=== PATIENT | male | born 1975 | race Caucasian/White ===

== ENCOUNTER 2023-06-15 16:32 | Outpatient (CLI) | payer BC, SELFPAY | END 2023-06-15 16:33 | disposition home or self-care (01) | PROVIDERS: PCP Family Medicine; Visit Provider Internal Medicine | DX: R10.2 Pelvic and perineal pain (principal); Z13.6 Encounter for screening for cardiovascular disorders; Z12.5 Encounter for screening for malignant neoplasm of prostate; Z13.9 Encounter for screening, unspecified | CPT/HCPCS: 80053; 80061; 84153; 86900; 86901 ==

== ENCOUNTER 2023-08-26 17:53 | Outpatient (CLI) | payer BC, SELFPAY ==
--- NOTE | 2023-08-26 18:00 | CRLHL7_ITS ---
For Patients: As a result of the Century Cures Act, medical imaging exams and procedure reports are released immediately into your electronic medical record. You may view this report before your referring provider. If you have questions, please contact your health care provider. INDICATION: Trauma, pain, edema TECHNIQUE: Ultrasound venous duplex upper left extremity. Compression venous exam was performed using brambila-scale, color Doppler, and spectral Doppler imaging. COMPARISON: None. FINDINGS: The left internal jugular, subclavian, and axillary veins are patent with normal waveforms. The brachial, basilic, and cephalic veins are fully compressible. Visualized left radial and ulnar veins appear compressible. IMPRESSION: No evidence of acute deep venous thrombosis in the left upper extremity. Dictated by Suze Saldana MD @ 08/26/2023 7:55:00 PM (Electronically Signed)
== END 2023-08-26 17:54 | disposition home or self-care (01) ==
LOC: US 17:54
PROVIDERS: PCP Internal Medicine; Visit Provider Internal Medicine
DX: T14.90XA Injury, unspecified, initial encounter (principal)
CPT/HCPCS: 93971

== ENCOUNTER 2023-10-29 08:24 | Outpatient (CLI) | payer BC, SELFPAY ==
--- OUTSIDE RECORDS SUMMARY | 2023-10-29 08:27 | XMS_ITS | Patient Health Record ---
Author Name Unknown Organization [facility] Address [address] [place] [address] Care Team Providers Care Instrument Installer Name Role Phone Sterling Loredo Primary Care Provider ALLERGIES Allergen (clinical drug ingredient) Drug/Non Drug Allergy documented on EMR Reaction Allergy Type Onset Date Status Shellfish (FN) Shellfish (uncoded) Unknown Allergy Active REASON FOR REFERRAL No Information MEDICATIONS Medication SIG (Take, Route, Frequency, Duration) Notes Start Date End Date Status Vitamin E Active Vitamin D Active SOTTOPELLE Active HERBAL SUPPLEMENT takes supplements. Not sure what they are Active SOCIAL HISTORY Tobacco Use: Social History Observation Description Date Details (start date - stop date) Never Smoker NA - NA Sex Assigned At : Social History Observation Description Sex Assigned At Unknown Tobacco Use/Smoking Question Answer Notes Are you a nonsmoker PROBLEMS Problem Type ICD Code Onset Dates Problem Status W/U Status Risk SNOMED Code Notes Problem Testicular dysfunction (E29.9) Active confirmed Testicular dysfunction (15077972) PLAN OF TREATMENT No Information Insurance Providers Payer Name Payer Address Payer Phone Subscriber Number Group Number Insured Name Patient Relationship to Insured Coverage Start Date Coverage End Date BCBS [address] [place] [address] [id number] Deric Chaudhari Self - patient is the insured MEDICAL (GENERAL) HISTORY Medical History History ICD Code None Surgical History Surgery Date(Month/Year) wisdom teeth removal
--- NOTE | 2023-10-29 09:55 | W.ANESCHARGE ---
Anesthesia Charges Start Date/Time Anesthesia Start Date: 10/29/23 Anesthesia Start Time: 09:25 Stop Date/Time Anesthesia Stop Date: 10/29/23 Anesthesia Stop Time: 09:53
--- NOTE | 2023-10-29 10:17 | W.ANESCHARGE ---
Anesthesia Charges Start Date/Time Anesthesia Start Date: 10/29/23 Anesthesia Start Time: 09:25 Stop Date/Time Anesthesia Stop Date: 10/29/23 Anesthesia Stop Time: 09:53
== END 2023-10-29 08:25 | disposition home or self-care (01) ==
LOC: OP CLINIC 08:25
PROVIDERS: PCP Internal Medicine; Visit Provider Internal Medicine
DX: Z12.11 Encounter for screening for malignant neoplasm of colon (principal); D12.4 Benign neoplasm of descending colon
CPT/HCPCS: 00811; 00812; 45380; 88305; J2704

== ENCOUNTER 2024-09-19 01:39 | Emergency (ER) | payer BC, SELFPAY ==
[2024-09-19 01:45] VITALS: BP 142/84; PULSE 89; RESP 20; TEMP 36.7; O2SAT 99; BMI 32.3
--- NOTE | 2024-09-19 02:01 | ED_ITS ---
HPI - General Adult General Date Seen: 09/19/24 Chief complaint: Skin/Abscess/Foreign Body Stated complaint: allergic reaction/rash Time Seen by Provider: 09/19/24 01:43 Source: patient Mode of arrival: ambulatory Limitations: no limitations History of Present Illness HPI narrative: Patient is a very nice 49-year-old gentleman who presents here with a rash over his whole body, it is worse on his torso but also apparent on his arms and legs, sparing his face and head. Says very itchy, he did take some Benadryl and some Zyrtec this morning and this did help, but then came back again tonight. No history of lip swelling, shortness of breath, tongue swelling or other issues. Reports no new medications, no recent URI type illnesses that he had some new type of cookies, and is wondering if this is from that. Related Data Previous Rx's ?Medication ?Instructions ?Recorded prednisone 20 mg tablet 20 mg PO Q12H #10 tabs 09/19/24 Allergies Allergy/AdvReac Type Severity Reaction Status Date / Time shellfish derived Allergy Mild Anaphylaxis Verified 09/19/24 01:48 Review of Systems Status of ROS: Reports: 10 or more systems reviewed and unremarkable except as noted in History and below [facility] Medical History Hematoma ?T14.8XXA - Other injury of unspecified body region, initial encounter (ICD- 10) Injury ?T14.90XA - Injury, unspecified, initial encounter (ICD-10) Perineal pain ?R10.2 - Pelvic and perineal pain (ICD-10) Screening due ?Z13.9 - Encounter for screening, unspecified (ICD-10) Exam Narrative: Exam Narrative: Patient is seen in room 4 he is in no apparent distress, speaking to me normally, good phonation, pupils equal round reactive to light TMs normal oropharynx normal neck is supple there is no oropharyngeal swelling noted. His chest is good air entry bilaterally no wheezing crackles noted heart sounds are normal abdomen is soft, he has classic urticarial wheals, most on his torso, but also on his extremities sparing his palms face and head. Const: Vital Signs, click to edit/add: Vital Signs - 24 hr 09/19/24 01:45 Temperature 98.0 F Pulse Rate [Right Pulse Oximeter] 89 Respiratory Rate 20 Blood Pressure [Ri ght Upper Arm] 142/84 H Pulse Oximetry 99 Oxygen Delivery Me thod Room Air Documenting provider has reviewed patient's vital signs: yes Course Course ED Course: I discussed with the patient, we will give him some prednisone, I discussed with him that we sometimes known figure out what causes this, he can avoid the cookies although I doubt whether this is the cause more likely it is going to come back as we do not understand this and he will just improve with time. He can continue with antihistamines both the Benadryl the Zyrtec, we will as prednisone, he risks the chance of rebound with this, but I think it is worth as he is miserable with itching Vital Signs Vital signs: Initial Vital Signs Temperature 98.0 F 09/19/24 01:45 Temperature Source Temporal Artery Scan 09/19/24 01:45 Pulse Rate 89 09/19/24 01:45 Respiratory Rate 20 09/19/24 01:45 Blood Pressure 142/84 H 09/19/24 01:45 Blood Pressure Mean 103 09/19/24 01:45 Blood Pressure Position Sitting 09/19/24 01:45 Pulse Oximetry 99 09/19/24 01:45 Oxygen Delivery Method Room Air 09/19/24 01:45 Vital Signs Temperature 98.0 F 09/19/24 01:45 Pulse Rate 89 09/19/24 01:45 Respiratory Rate 20 09/19/24 01:45 Blood Pressure 142/84 H 09/19/24 01:45 Pulse Oximetry 99 09/19/24 01:45 Oxygen Delivery Method Room Air 09/19/24 01:45 Temperature 98.0 F 09/19/24 01:45 Pulse Rate 89 09/19/24 01:45 Respiratory Rate 20 09/19/24 01:45 Blood Pressure 142/84 H 09/19/24 01:45 Pulse Oximetry 99 09/19/24 01:45 Oxygen Delivery Method Room Air 09/19/24 01:45 Medical Decision Making MDM Narrative Medical decision making narrative: Differential diagnosis include but are not limited to contact dermatitis, allergic reaction, shingles, impetigo, seborrheic dermatitis, Heber Edgar syndrome, ITP, meningococcus, HSP Discharge Plan Discharge Clinical Impression: Urticaria Patient Disposition: Home, Self-Care Condition: Stable Instructions: Urticaria (ED) Additional Instructions: Home rest you may continue with the Benadryl 50 mg every 6 hours as needed, it is very sedating, he may not want to take this during the day, I would take 1 Zyrtec a day also. Take the prednisone as directed, we went over the side effects of this. This is not contagious, will run its course. If you do develop symptoms such as shortness of breath wheezing and those things, please come back with this is relatively unlikely given what I see.instymeds Activity Level: Light activity Prescriptions: New prednisone 20 mg tablet 20 mg PO Q12H Qty: 10 0RF Follow Up/Referrals: Stephane Kolb MD [Primary Care Provider] - Stand Alone Forms: Page[employer] Info Instructions
--- OUTSIDE RECORDS SUMMARY | 2024-09-19 02:09 | XMS_ITS | Patient Health Record ---
Author Organization [facility] Address [address] [place] [address] Care Team Providers Care Shellfish Farming Supervisor Name Role Phone Dorothea Loredovin Primary Care Provider Allergies Allergen (clinical drug ingredient) Drug/Non Drug Allergy documented on EMR Reaction Allergy Type Onset Date Status Shellfish (FN) Shellfish (uncoded) Unknown Allergy Active Reason For Referral No Information Medications Medication SIG (Take, Route, Frequency, Duration) Notes Start Date End Date Status Vitamin E Active Vitamin D Active SOTTOPELLE Active HERBAL SUPPLEMENT takes supplements. Not sure what they are Active Social History Tobacco Use: Social History Observation Description Date Details (start date - stop date) Never Smoker NA - NA Tobacco Use/Smoking Question Answer Notes Are you a nonsmoker Problems Problem Type SNOMED Code ICD Code Onset Dates Problem Status W/U Status Risk Notes Problem Testicular dysfunction (95011135) Testicular dysfunction (E29.9) Active confirmed Plan Of Treatment No Information Insurance Providers Payer Name Payer Address Payer Phone Subscriber Number Group Number Insured Name Patient Relationship to Insured Coverage Start Date Coverage End Date BCBS - (Client Bill) [address] [place] [address] [id number] Deric Chaudhari Self - patient is the insured Medical (General) History Medical History History ICD Code None Surgical History Surgery Date(Month/Year) wisdom teeth removal
--- OUTSIDE RECORDS SUMMARY | 2024-09-19 02:09 | XMS_ITS | Clinical Summary ---
Author Organization [facility] Address [address] [place] [address] Care Team Providers Care Watch Train Inspector Name Role Phone Found, No Pcp MD Primary Care Provider Unavailab le Source Comments You are receiving this document as you are listed as the primary care provider,follow-up provider, or the patient has been referred to you for consultation.This is in compliance with the Medicare and[facility] EHR Incentive Program,which states Providers who transition their patient to another setting of careor provider of care or refers their patient to another provider of care shouldprovide summary care record for each transition of care or referral. [facility] Allergies No known active allergies Medications Medication Sig Dispensed Refills Start Date End Date Status unknown medication Indications: PN: 06/20/2009 Active cetirizine (AKA ZYRTEC) 10 MG tablet Take 1 tablet by mouth daily (every 24 hours). 3 04/03/2009 Active terbinafine (LAMISIL) 250 MG tablet Take 1 tablet by mouth daily (every 24 hours). 30 2 04/03/2009 Active Active Problems No known active problems Immunizations Name Administration Dates Next Due Td 03/02/2005 Social History Tobacco Use Types Packs/Day Years Used Date Smoking Tobacco: Never Smokeless Tobacco: Never Alcohol Use Standard Drinks/Week Comments Yes 0 (1 standard drink = 0.6 oz pur e alcohol) Sex and Gender Information Value Date Recorded Sex Assigned at Not on file Gender Identity Not on file Sexual Orientation Not on file Last Filed Vital Signs Vital Sign Reading Time Taken Comments Blood Pressure 124/62 06/20/2009 4:34 PM CDT Pulse 74 06/20/2009 4:34 PM CDT Temperature 36.9 C (98.4 F) 05/22/2009 3:34 PM CDT C: 36.9 C Respiratory Rate 16 02/01/2008 8:28 AM CDT Oxygen Saturation - - Inhaled Oxygen Concentration - - Weight 104.3 kg (230 lb) 08/30/2018 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 AUTOMOTIVE Height 182.9 cm (6') 08/30/2018 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 AUTOMOTIVE Body Mass Index 31.19 08/30/2018 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 AUTOMOTIVE Plan of Treatment Health Maintenance Due Date Last Done Comments Colon Cancer Screening Plan Due 1977 Hep C Screening (Preventive Services) 1977 HIV Screening (Preventive Services) 1993 Adult Preventive Visit 1995 HepB (1) 1996 Cholesterol 05/22/2014 05/22/2009 COVID-19 Vaccine (2 - season) 2024 02/27/2021 Influenza (#1) 2024 DTaP/Tdap/Td (4 - Tdap) 10/25/2025 10/25/20 15, 07/12/2014, 06/10/2011, Additional history exists Zoster/Shingles (1 of 2) 2027 HepA Aged Out No longer eligi ble based on patient's age to complete this topic Hib Aged Out No longer eligi ble based on patient's age to complete this topic IPV (Polio) Aged Out No longer eligi ble based on patient's age to complete this topic Infant RSV Aged Out No longer eligi ble based on patient's age to complete this topic MCV4 Aged Out No longer eligi ble based on patient's age to complete this topic Pneumococcal Aged Out No longer eligi ble based on patient's age to complete this topic Procedures Procedure Name Priority Date/Time Associated Diagnosis Comments CHOLESTEROL, TOTAL AND HDL Routine 05/22/2009 4:00 PM CDT from Last 3 Months or Most Recently Relevant to Health Maintenance Results * (ABNORMAL) Cholesterol, Total and HDL (05/22/2009 4:00 PM CDT) Cholesterol/HDL Ratio Screen 4.2 No normal range HP CONVERSION Cholesterol 203(H) <200 mg/dL HP CONVERSION HDL Cholesterol 48 >40 mg/dL HP CONVERSION 05/22/2009 4:00 PM CDT Kathy España APRN, TECHNICAL AIDE LAB_1 HP CONVERSION from Last 3 Months or Most Recently Relevant to Health Maintenance Care Teams Watch Train Inspector Relationship Specialty Start Date End Date Found, No Pcp, [address] [place] [address] PCP - General 07/26/18
[2024-09-19 02:10] VITALS: BP 135/78; PULSE 80; RESP 20; TEMP 36.7; O2SAT 99
[2024-09-19 02:12] VITALS: BP 135/78; PULSE 80; RESP 20; TEMP 36.7
== END 2024-09-19 02:12 | disposition home or self-care (01) ==
LOC: ED 02:06
PROVIDERS: Emergency Provider Family Medicine; PCP Internal Medicine
DX: L50.9 Urticaria, unspecified (principal)
CPT/HCPCS: 99283

== ENCOUNTER 2024-09-27 09:31 | Outpatient (CLI) | payer BC, SELFPAY ==
--- OUTSIDE RECORDS SUMMARY | 2024-09-30 08:15 | XMS_ITS | Clinical Summary ---
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
--- OUTSIDE RECORDS SUMMARY | 2024-09-30 08:15 | XMS_ITS | Patient Health Record ---
Author Organization [facility] Address [address] [place] [address] Care Team Providers Care Drawing In Machine Tender Helper Name Role Phone Dorothea Loredovin Primary Care Provider [phone] Allergies Allergen (clinical drug ingredient) Drug/Non Drug [...] W/U Status Risk Notes Problem Testicular dysfunction ([id number]) Testicular dysfunction (E29.9) Active confirmed Plan Of Treatment No Information Insurance Providers Payer Name Payer Address Payer Phone Subscriber Number Group Number Insured Name Patient Relationship to Insured Coverage Start Date Coverage End Date BCBS - (Client Bill) [address] [place] [address] [id number] Deric Chaudhari Self - patient is the insured Medical (General) History Medical History History ICD Code None Surgical History Surgery Date(Month/Year) wisdom teeth removal
== END 2024-09-27 09:32 | disposition home or self-care (01) ==
PROVIDERS: PCP Internal Medicine; Referring Provider Internal Medicine; Visit Provider Internal Medicine
DX: E78.5 Hyperlipidemia, unspecified (principal); Z13.9 Encounter for screening, unspecified
CPT/HCPCS: 80053; 80061